=== PATIENT | female | born 1950 | race Asian ===

== ENCOUNTER 2020-01-21 10:05 | Emergency (ER) | payer MEDICARE, OTHER ==
[~2020-01-21] VITALS: Ht 152.4 cm; Wt 52.3 kg
[2020-01-21] MEDS ORDERED: TELM20 PO (10:09)
[2020-01-21] MEDS ORDERED: METF-960 PO (10:09)
[2020-01-21] MEDS ORDERED: HYDR-1475 PO (10:09)
[2020-01-21 10:10] VITALS: BP 163/66
[2020-01-21] MEDS ORDERED: PERTUSS(ACELL),DIPH,TET VAC/PF 0.5 ML VIAL IM ONE (11:00)
[2020-01-21 12:11] LABS: GLUCOSE,POINT OF CARE 114 MG/DL (70-110)
== END 2020-01-21 11:19 | disposition home or self-care (01) ==
LOC: EMS 10:18
DX: S91.331A Puncture wound without foreign body, right foot, initial encounter (principal); E11.9 Type 2 diabetes mellitus without complications; I10 Essential (primary) hypertension; Z79.84 Long term (current) use of oral hypoglycemic drugs; W45.0XXA Nail entering through skin, initial encounter; Y93.89 Activity, other specified; Y92.89 Other specified places as the place of occurrence of the external cause; Y99.8 Other external cause status
CPT/HCPCS: 90471; 90715